=== PATIENT | male | born 1980 | race Caucasian/White ===

== ENCOUNTER 2016-12-19 22:24 | Emergency (ER) | payer SELFPAY ==
[2016-12-19 23:10] LABS: #Eosinphils 0.4 thou/uL (0.0-0.7); #Lymphocytes 2.5 thou/uL (1.20-3.40); #Monocytes 0.9 thou/uL (0.11-0.59); #Neutrophils 7.7 thou/uL (1.40-6.50); %Basophils 0.2 % (0.0-1.0); %Eosinophils 3.2 % (0.0-10.0); %Lymphocytes 21.5 % (21.0-51.0); %Monocytes 7.6 % (0.0-10.0); Hematocrit 52.9 % (42.0-52.0); Red Blood Cell (RBC) Count 5.48 mill/uL (4.70-6.10); White Blood Cell (WBC) Count 11.4 thou/uL (4.8-10.8)
[2016-12-19 23:29] LABS: Anion Gap 15 mmol/L (10-20); BUN (Urea Nitrogen) 9 mg/dL (8.9-20.6); Calc. Creatinine Clearance 0 mL/min (70-130); Calcium 10.2 mg/dL (7.8-10.44); Carbon Dioxide 25 mmol/L (22-29); Chloride 104 mmol/L (98-107); Estimated GFR-MDRD 85
[2016-12-19] MEDS ORDERED: Ketorolac Tromethamine 30 MG/ML VIAL ONE (23:40)
[2016-12-19 23:45] LABS: Bilirubin Negative (Negative); Blood, Urine Negative (Negative); Glucose, Urine (Dipstick) Negative (Negative); Ketone, Urine Negative (Negative); Nitrite Negative (Negative); Protein, Urine (Dipstick) Negative (Neg-Trace); Urobilinogen 0.2 mg/dL (0.2-1.0)
--- NOTE | 2016-12-20 00:06 | RAD ---
RADIOGRAPH CHEST 1 VIEW: Date: 12/19/2016 Time: 11:07 p.m. HISTORY: A 35-year-old male with left-sided chest pain. COMPARISON: 06/23/2016 FINDINGS: There is a new finding of diffuse bilateral interstitial densities in the mid and lower lung zones. No consolidation. The cardiomediastinal silhouette is normal. No hilar enlargement. No pneumotho rax. The lateral costophrenic angles are sharp. IMPRESSION: New bilateral interstitial densities. MORIAH [] POS: [facility]
== END 2016-12-20 00:39 | disposition home or self-care (01) ==
LOC: ERS 22:24
DX: J18.9 Pneumonia, unspecified organism (principal); D72.829 Elevated white blood cell count, unspecified; F41.9 Anxiety disorder, unspecified; F17.210 Nicotine dependence, cigarettes, uncomplicated
CPT/HCPCS: 36415; 71010; 80048; 81003; 85025; 85379; 87086; 87491; 87591; 93005; 96361; 96374; J1885

== ENCOUNTER 2017-04-11 02:27 | Emergency (ER) | payer SELFPAY ==
--- NOTE | 2017-04-11 10:40 | RAD ---
CHEST 2 VIEWS: History Cough and fever. COMPARISON: 12/19/16. FINDINGS: Cardiac silhouette and pulmonary vasculature are unremarkable. Mediastinum is midline. There is no confluent airspace consolidation, pneumothorax, or pleural fluid evident. IMPRESSION: No active cardiopulmonary abnormalities are demonstrated. POS: [facility]
== END 2017-04-11 05:30 | disposition home or self-care (01) ==
LOC: ERS 02:27
DX: J18.9 Pneumonia, unspecified organism (principal); F41.9 Anxiety disorder, unspecified; F17.210 Nicotine dependence, cigarettes, uncomplicated; Z71.6 Tobacco abuse counseling
CPT/HCPCS: 71046; 99406

== ENCOUNTER 2017-06-13 21:45 | Emergency (ER) | payer SELFPAY ==
[2017-06-13 22:55] LABS: Bilirubin Small (Negative); Blood, Urine Negative (Negative); Clarity CLEAR (Clear); Glucose, Urine (Dipstick) Negative (Negative); Leukocyte Negative (Negative); Nitrite Negative (Negative); Protein, Urine (Dipstick) Trace mg/dL (Neg-Trace); Specific Gravity, Urine 1.034 (1.002-1.036)
--- NOTE | 2017-06-14 00:05 | ULT ---
TESTICULAR ULTRASOUND: 06/13/2017 HISTORY: Mild bilateral testicular pain. FINDINGS: The testicles are small in size bilaterally. The right testicle measures 2.2 cm x 1.2 cm x 1.4 cm, w ith the left testicle measuring 2.3 cm x 1 cm x 1.4 cm. No testicular mass is seen. There is mild b ut symmetric nonspecific heterogeneity of each testicle. Doppler evaluation of each testicle with sp ectral analysis and color-flow evaluation demonstrates both arterial and venous flow in each testicle . There is a tiny, anechoic structure seen within the right epididymis, measuring 0.3 cm, which probabl y represents a small epididymal cyst. The epididymides otherwise demonstrate a normal sonographic ap pearance bilaterally. There is a tiny amount of fluid seen adjacent to each testicle, which is likely physiologic in origin . IMPRESSION: 1. Small size of each testicle, but arterial and venous flow is documented in each testicle. 2. Mild nonspecific heterogeneity of each testicle. Color-flow evaluation does demonstrate symmetri c flow in each testicle. 3. Tiny right epididymal cyst. POS: [facility]
[2017-06-14 22:23] LABS: Chlamydia by PCR Not Detected (NotDetected); GC by PCR Not Detected (NotDetected)
== END 2017-06-13 23:39 | disposition home or self-care (01) ==
LOC: ERS 21:45
DX: F17.210 Nicotine dependence, cigarettes, uncomplicated; F41.9 Anxiety disorder, unspecified; N45.1 Epididymitis
CPT/HCPCS: 76870; 81003; 87491; 87591; 93976